=== PATIENT | female | born 1955 | race Caucasian/White ===

== ENCOUNTER → 2019-05-22 | Outpatient (CLI) | payer MEDICAID ==
[~2019-05-22] VITALS: Ht 149 cm; Wt 108.0 kg
[~2019-05-22] MED LIST: CATHETER FLUSH 10 ML SYR IV PRN; REGADENOSON 0.4 MG/5 ML SYR (LEXISCAN) IV ONE
--- NOTE | 2019-05-22 13:00 | NUR ---
Lexiscan 0.4 mg IV given per barbara garcia rn.
--- NOTE | 2019-05-22 19:02 | STRESS TEST ---
DATE OF SERVICE: 05/22/2019 LEXISCAN MYOVIEW STRESS TEST REPORT REFERRING PHYSICIAN: Dr. Strong. Baseline heart rate is 82. Baseline blood pressure is 151/100. Baseline EKG is sinus rhythm with no ischemic changes. In summary, the patient was injected with 10.01 mCi of technetium-99 Myoview and the resting images were obtained. Then, the patient received 0.4 mg of Lexiscan followed by 30.2 mCi of technetium-99 Myoview. Throughout the test, there were no EKG changes. The resting and stress images were reviewed and compared in the short axis, horizontal long axis, and vertical long axis views. Review of the images showed good radiotracer uptake with no significant ischemia or infarction. SSS is 3, SDS 3, TID value 0.94. On the gated images, the left ventricle appeared to be normal size with normal contractility. Calculated ejection fraction 67%. CONCLUSION: 1. The patient tolerated Lexiscan well. 2. No ischemia or infarction on SPECT images. 3. Normal left ventricular size with normal contractility. Calculated ejection fraction 67%. Job ID: [id number] DocumentID: [id number] Dictated Date: 05/22/2019 15:17:38 Warehousing Technician Date: 05/22/2019 19:01:34 Dictated By: MILAGROS STRONG MD
== END ==
LOC: CARD 09:49
PROVIDERS: ATTEND Internal Medicine Cardiovascular Disease
DX: I10 Essential (primary) hypertension (principal); E78.5 Hyperlipidemia, unspecified; R06.02 Shortness of breath; Z72.0 Tobacco use
CPT/HCPCS: 78452; 93017; 93306